=== PATIENT | female | born 1980 | race Caucasian/White ===

== ENCOUNTER 2016-09-20 17:21 | Emergency (ER) | payer SELFPAY, OTHER ==
[2016-09-20] MEDS ORDERED: Acetaminophen/Codeine 30-300mg Tablet ONE (18:02)
--- NOTE | 2016-09-20 18:47 | RAD ---
RIGHT WRIST THREE VIEWS: 09/20/16 HISTORY: 35-year-old female with right wrist pain. IMPRESSION: No fracture, dislocation, or other significant acute osseous abnormality. POS: [facility]
== END 2016-09-20 19:20 | disposition home or self-care (01) ==
LOC: MADERS 17:21
DX: M77.9 Enthesopathy, unspecified (principal); F17.210 Nicotine dependence, cigarettes, uncomplicated